=== PATIENT | female | born 1950 | race Caucasian/White ===

== ENCOUNTER → 2017-04-06 | Outpatient (CLI) | payer OTHER | LOC: FIMAGING 11:51 | PROVIDERS: ATTEND Obstetrics & Gynecology Gynecology | CPT/HCPCS: G0202 ==

== ENCOUNTER 2017-04-26 06:07 | Observation (INO) | payer OTHER ==
[~2017-04-26 06:07] MED LIST: ROPIVACAINE 0.2% 80 MG, EPINEPHrine 0.2 MG, KETOROLAC TROMETHAMINE 30 MG in BAG 0 ML IU ONE; TRANEXAMIC ACID 3,000 MG in NS 50 ML IRR ONE
[2017-04-26] MEDS ORDERED: LIDOCAINE 1% 2 ML INJ ONE ×2 (06:26→06:53)
[2017-04-26] MEDS ORDERED: LR 1,000 ML IV ONE (06:46)
[2017-04-26] MEDS ORDERED: DEXAMETHASONE 4 MG/ML VIAL ONE ×3 (06:53→07:43)
[2017-04-26] MEDS ORDERED: FAMOTIDINE 20 MG TAB ONE (06:53)
[2017-04-26] MEDS ORDERED: ACETAMINOPHEN 325 MG TAB ONE (06:53)
[2017-04-26] MEDS ORDERED: CEFAZOLIN 2 GM/DEXTROSE/100 ML BAG IV ONE (06:54)
[2017-04-26] MEDS ORDERED: TRANEXAMIC ACID 3,000 MG/50 ML BAG IRR ONE (06:59)
[2017-04-26] MEDS ORDERED: VANCOMYCIN 1 GM VIAL ONE (07:00)
--- NOTE | 2017-04-26 07:40 | PDHPUP ---
History & Physical Update H&P update statement: This history and physical update is based on an assessment of the patient which was completed after admission or registration (within 24 hours), but prior to the surgery/procedure. No change in the patient's health since H and P H&P update: H&P reviewed & patient examined, no change in patient's condition since H&P completed H&P changes: None
[2017-04-26] MEDS ORDERED: PROPOFOL/EMULSION 500 MG/50 ML BOTTLE IV ONE (07:42)
[2017-04-26] MEDS ORDERED: MIDAZOLAM 2 MG/2 ML VIAL ONE (07:42)
[2017-04-26] MEDS ORDERED: METOCLOPRAMIDE 10 MG/2 ML VIAL ONE (07:43)
[2017-04-26] MEDS ORDERED: LIDOCAINE 2% 100 MG/5 ML SYR ONE (07:43)
[2017-04-26] MEDS ORDERED: BUPIVACAINE/DEXTROSE 7.5MG/ML 2 ML SPINAL AMP SP ONE (07:43)
[2017-04-26] MEDS ORDERED: ACETAMINOPHEN 325 MG TAB PO ONE (08:00)
[2017-04-26] MEDS ORDERED: DEXAMETHASONE 4 MG/ML VIAL IVP ONE (08:00)
[2017-04-26] MEDS ORDERED: FAMOTIDINE 20 MG TAB PO ONE (08:00)
[2017-04-26] MEDS ORDERED: LIDOCAINE 1% 2 ML INJ ID PRN (08:00)
[2017-04-26] MEDS ORDERED: ceFAZolin 2 GM/DEXTROSE 100 ML IV ONE (08:00)
--- NOTE | 2017-04-26 08:08 | PDANEPAE ---
ANE History of Present Illness djd ANE Past Medical History - Cardiovascular History Hx Hypertension: No Hx Arrhythmias: No Hx Chest Pain: No Hx Coronary Artery / Peripheral Vascular Disease: No Hx CHF / Valvular Disease: No Hx Palpitations: No - Pulmonary History Hx COPD: No Hx Asthma/Reactive Airway Disease: No Hx Recent Upper Respiratory Infection: No Hx Oxygen in Use at Home: No Hx Sleep Apnea: No Sleep Apnea Screening Result - Last Documented: Negative - Neurologic History Hx Cerebrovascular Accident: No Hx Seizures: No Hx Dementia: No - Endocrine History Hx Diabetes: No Endocrine History Comment: PAST HYPOTHYROID - Renal History Hx Renal Disorders: No - Liver History Hx Hepatic Disorders: No - Neurological & Psychiatric Hx Hx Neurological and Psychiatric Disorders: No - Cancer History Hx Cancer: No - Congenital Disorder History Hx Congenital Disorders: No - GI History Hx Gastrointestinal Disorders: No - Other Health History Other Health History: PSORIASIS. BRUISES EASILY - Chronic Pain History Chronic Pain: No - Surgical History Prior Surgeries: LAMINECTOMY LUMBAR. L TKA. HYSTERECTOMY. R KNEE MENISCUS. LIPOSUCTIONS. TUMMY TUCK SIDRA Review of Systems - Exercise capacity METS (RN): 5 METS - Systems Neurological: Reports: tingling (r foot) ANE Patient History - Allergies Allergies/Adverse Reactions: Penicillins Allergy (Intermediate, Verified 09/14/12 22:27) - Home Medications Home Medications: Estradiol [Estradiol 1 MG (*)] 1 mg PO DAILY 10/14/09 [Last Taken 1 Week Ago] Fluticasone Nasal [Flonase Nasal [place] (RX)] 2 sprays NASAL DAILY 03/02/17 [ Last Taken 04/25/17] Herbals/Supplements -Info Only 1 ea PO DAILY 03/02/17 [Last Taken 1 Week Ago] Loratadine [Claritin] 10 mg PO DAILY PRN 03/02/17 [Last Taken 3 Days Ago] Multivitamins [Multivitamin (*)] 1 each PO DAILY 03/02/17 [Last Taken 1 Week Ago ] Mupirocin Calcium [Mupirocin] 1 jung TP DAILY 03/02/17 [Last Taken 04/25/17] - NPO status NPO Since - Liquids (Date): 04/25/17 NPO Since - Liquids (Time): 22:00 NPO Since - Solids (Date): 04/25/17 NPO Since - Solids (Time): 20:00 - Smoking Hx Smoking Status: Former smoker - Family Anes Hx Family Hx Anesthesia Complications: NEG ANE Labs/Vital Signs - Vital Signs Blood Pressure: 126/64 Heart Rate: 78 Respiratory Rate: 18 O2 Sat (%): 96 Height: 156.21 cm Weight: 64.41 kg ANE Physical Exam - Airway Neck exam: FROM Mallampati Score: Class 1 Mouth exam: normal dental/mouth exam - Pulmonary Pulmonary: no respiratory distress - Cardiovascular Cardiovascular: regular rate and rhythym - ASA Status ASA Status: I ANE Anesthesia Plan Anesthesia Plan: spinal (possible GA 2 to previous spine surgery)
[2017-04-26] MEDS ORDERED: fentaNYL 100 MCG/2 ML INJ ONE ×2 (08:48→10:03)
[2017-04-26] MEDS ORDERED: BUPIVACAINE/EPI 0.25% 30 ML SDV ONE (09:36)
[2017-04-26] MEDS ORDERED: BUPIVACAINE/EPI 0.5% 30 ML SDV ONE (09:36)
[2017-04-26] MEDS ORDERED: DIPHENOXYLATE/ATROPINE LOMOTIL 1 TAB PO PRN (09:38)
[2017-04-26] MEDS ORDERED: TEMAZEPAM 15 MG CAP PO PRN (09:38)
[2017-04-26] MEDS ORDERED: METOCLOPRAMIDE 10 MG/2 ML VIAL IVP PRN (09:38)
[2017-04-26] MEDS ORDERED: PROMETHAZINE HCL 25 MG/ML INJ IVP PRN (09:38)
[2017-04-26] MEDS ORDERED: MAGNESIUM HYDROXIDE 30 ML UDCUP PO PRN (09:38)
[2017-04-26] MEDS ORDERED: POLYETHYLENE GLYCOL 3350 17 GM PKT PO PRN (09:38)
[2017-04-26] MEDS ORDERED: PROMETHAZINE HCL 25 MG SUPPR PR PRN (09:38)
[2017-04-26] MEDS ORDERED: ONDANSETRON DISINTEGRATING 4 MG TAB PO PRN (09:38)
[2017-04-26] MEDS ORDERED: diphenhydrAMINE 25 MG CAP PO PRN (09:38)
[2017-04-26] MEDS ORDERED: ONDANSETRON 4 MG/2 ML VIAL IVP PRN ×2 (09:38→09:46)
[2017-04-26] MEDS ORDERED: CYCLOBENZAPRINE 10 MG TAB PO PRN (09:38)
[2017-04-26] MEDS ORDERED: LACTULOSE 20 GM/30 ML UDCUP PO PRN (09:38)
[2017-04-26] MEDS ORDERED: BISACODYL 10 MG SUPP PR PRN (09:38)
--- NOTE | 2017-04-26 09:38 | POSTOPPROG ---
Post Op Note Date of Operation: 04/26/17 Surgeon: Azalia Parekh Manager Surgical: momo kirby Anesthesiologist: Luda Anesthesia: Epidural, GET(General Endotracheal), IV Sedation Pre-op Diagnosis: right knee OA Post-op Diagnosis: right knee OA Indication: failed conservative therapies Procedure: partial medial R knee arthroplasty, robot assisted Inf/Abcess present in the surg proc area at time of surgery?: No EBL: Minimal
[2017-04-26] MEDS ORDERED: NON-FORMULARY NEW DRUG (Loratadine [Claritin] 10 MG) PO PRN (09:40)
[2017-04-26] MEDS ORDERED: MEPERIDINE 25 MG/ML SYR IVP PRN (09:46)
[2017-04-26] MEDS ORDERED: ACETAMINOPHEN 500 MG TAB PO PRN (09:46)
[2017-04-26] MEDS ORDERED: NALOXONE HCL 0.4 MG/ML INJ IVP PRN (09:46)
[2017-04-26] MEDS ORDERED: fentaNYL 100 MCG/2 ML INJ IVP PRN (09:46)
[2017-04-26] MEDS ORDERED: HYDROCODONE/APAP 5/325 TAB PO PRN (09:46)
[2017-04-26] MEDS ORDERED: LR 500 ML IV PRN (09:46)
--- NOTE | 2017-04-26 09:46 | POSTANESTH ---
Post Anesthetic Evaluation Cardiovascular Status: Normal, Stable Respiratory Status: Normal, Stable Level of Consciousness/Mental Status: Can Participate in Eval Pain Control: Adequate, Prn Tx Ordered Nausea/Vomiting Control: Adequate, Prn Tx Ordered Complications Possibly Related to Anesthesia: None Noted
[2017-04-26] MEDS ORDERED: CETIRIZINE 10 MG TAB PO PRN (09:48)
[2017-04-26] MEDS ORDERED: LR 1,000 ML IV SCH (10:00)
[2017-04-26] MEDS: ACETAMINOPHEN 325 MG TAB PO SCH ×3 (11:35→23:09)
[2017-04-26] MEDS: oxyCODONE IR 5 MG TAB PO PRN ×4 (11:36→20:29)
[2017-04-26] MEDS: ceFAZolin 2 GM/DEXTROSE 100 ML IV SCH ×2 (14:30→21:14)
[2017-04-26] MEDS: ASPIRIN 325 MG TAB PO SCH (19:28)
[2017-04-26] MEDS: SENNOSIDES/DOCUSATE SODIUM TAB PO SCH (19:28)
[2017-04-26] MEDS: FAMOTIDINE 20 MG TAB PO SCH (19:28)
[2017-04-27] MEDS: ACETAMINOPHEN 325 MG TAB PO SCH ×2 (04:55→11:22)
[2017-04-27 05:19] LABS: HEMATOCRIT 36.5 % (38.0-47.0)
[2017-04-27 07:25] VITALS: BP 107/55; PULSE 72; RESP 14; TEMP 97.7; O2SAT 95
--- NOTE | 2017-04-27 07:56 | SOAPPROG ---
SOAP Progress Note Assessment/Plan: Assessment: Patient is doing well POD 1 s/p R partial medial knee arthroplasty. Pain management: pain is well controlled on oral pain meds. VTE ppx: recommend aspirin daily for 3 weeks, cont ZOFIA and SCDs Anemia: level is expected initially postop. Asymptomatic. Continue to monitor D/c planning: d/c to home today pending release from PT. She would like to have home PT. Plan: 04/27/17 07:52 Objective: Vital Signs Temp Pulse Resp BP Pulse Ox 36.5 C 72 14 107/55 L 95 04/27/17 07:22 04/27/17 07:22 04/27/17 07:22 04/27/17 07:22 04/27/17 07:22 Laboratory Results 04/27/17 04:21 04/26/17 04/27/17 04/28/17 05:59 05:59 05:59 Intake Total 2140 Output Total 920 Balance 1220 ICD10 Worksheet Patient Problems: Problems Problem Status Onset Osteoarthritis of right knee Acute - ICD10 Problem Qualifiers (1) Osteoarthritis of right knee Qualifiers: Osteoarthritis type: primary Qualified Code(s): M17.11 - Unilateral primary osteoarthritis, right knee
--- NOTE | 2017-04-27 08:03 | SOAPPROG ---
SOAP Progress Note Assessment/Plan: Assessment: Patient is doing well POD 1 s/p R partial medial knee arthroplasty. Pain management: pain is well controlled on oral pain meds. VTE ppx: recommend aspirin daily for 3 weeks, cont ZOFIA and SCDs Anemia: level is expected initially postop. Asymptomatic. Continue to monitor D/c planning: d/c to home today pending release from PT. Plan: 04/27/17 07:52 04/27/17 08:03 Objective: Vital Signs Temp Pulse Resp BP Pulse Ox 36.5 C 72 14 107/55 L 95 04/27/17 07:22 04/27/17 07:22 04/27/17 07:22 04/27/17 07:22 04/27/17 07:22 Laboratory Results 04/27/17 04:21 04/26/17 04/27/17 04/28/17 05:59 05:59 05:59 Intake Total 2140 Output Total 920 Balance 1220 ICD10 Worksheet Patient Problems: Problems Problem Status Onset Osteoarthritis of right knee Acute - ICD10 Problem Qualifiers (1) Osteoarthritis of right knee Qualifiers: Osteoarthritis type: primary Qualified Code(s): M17.11 - Unilateral primary osteoarthritis, right knee
[2017-04-27] MEDS: SENNOSIDES/DOCUSATE SODIUM TAB PO SCH (08:05)
[2017-04-27] MEDS: ASPIRIN 325 MG TAB PO SCH (08:05)
[2017-04-27] MEDS: oxyCODONE IR 5 MG TAB PO PRN ×2 (08:05→11:22)
[2017-04-27] MEDS: FAMOTIDINE 20 MG TAB PO SCH (08:05)
[2017-04-27] MEDS ORDERED: PNEUMOC 13-VAL CONJ-DIP CRM/PF 0.5 ML SYR IM ONE (09:43)
--- NOTE | 2017-04-27 18:04 | GOP ---
[f rep st] OPERATIVE REPORT DATE OF OPERATION: 04/26/2017 SURGEON: Jesús Parekh MD B OPERATOR: Darryl Miller PA-C. ANESTHESIA: Spinal. PREOPERATIVE DIAGNOSIS: Right knee osteoarthritis. POSTOPERATIVE DIAGNOSIS: Right knee osteoarthritis. PROCEDURE PERFORMED: Right medial compartment partial knee replacement with computer navigation and robotic assist. FINDINGS/PATHOLOGY: Severe medial compartment osteoarthritis. ESTIMATED BLOOD LOSS: 30 cc. INDICATIONS: This is a 66-year-old female with severe and progressive pain and deformity of the right knee unresponsive to conservative care. The risks and benefits of surgical intervention were explained in detail. DESCRIPTION OF PROCEDURE: The patient was brought to the operating room and placed on the table in supine position. Spinal anesthesia was induced without difficulty. A pneumatic tourniquet was applied about the right proximal thigh and the leg was prepped and draped in sterile fashion. Attention was turned first to the distal aspect of the right femur. At 3 cm proximal to the lateral rise of the femur, 2 percutaneous half pins were placed for fixation of the femoral array. In a similar fashion, 2 pins were placed anterolateral on the tibia for fixation of the tibial array. External land marking and registration of the hip center was performed without difficulty. After exsanguination by elevation, the tourniquet was inflated to 250 mmHg. Incision was made from the tibial tuberosity to the superior pole of the patella. Dissection was carried out through the subcutaneous tissue to the deep fascia using Bovie electrocautery for hemostasis. Medial parapatellar arthrotomy was carried out to the superior pole of the patella. The medial collateral ligament was elevated and the infrapatellar fat pad was resected. Internal femoral and tibial registration was carried out without difficulty and the femoral and tibial checkpoints were placed and verified for accuracy. Attention was turned to the femur. The foot print for the size 4 femoral component was cut with the 6 mm bur using the Local[employer] robotic system and verified for accuracy against the CT based plan. The hole was cut for the femoral post. In a similar fashion, the 6 mm bur was used to cut the foot print for the size 4 tibial component using the BURKE system and verified for accuracy against the CT based plan. Attention was turned to the posterior aspect of the knee and remnants of the medial meniscus were excised. The posterior capsule was injected with ropivacaine, epinephrine and Toradol. Trial reduction was carried out and there was excellent range of motion, alignment and stability using the size 4 femoral component and the size 4 tibial component, 4 x 8 mm polyethylene. All trials were then removed. The joint was thoroughly irrigated and carefully dried. One package of cement and 1 gram of vancomycin were mixed in the vacuum mixer and placed on the fixation surfaces of all components. The components were implanted and all excess cement was thoroughly removed. Implant placement was verified against the CT view plan and found to be excellent. The tourniquet was deflated and all bleeders were coagulated. The wound was thoroughly irrigated and closed using interrupted sutures of 2-0 Vicryl for the joint capsule. The subcu was closed with 3-0 Vicryl and the skin with 4-0 Monocryl. Dermabond and Steri-Strips were applied, followed by a compressive dressing. The patient was then moved from the operating room to the recovery room in good condition, having tolerated the procedure well. CASE CLASSIFICATION: Clean. /[id number]/MODL MTDD
--- NOTE | 2017-04-28 01:05 | GDS ---
[f rep st] DISCHARGE SUMMARY ADMISSION DIAGNOSIS: Right knee medial compartment osteoarthritis. DISCHARGE DIAGNOSIS: Right knee medial compartment osteoarthritis. OPERATION PERFORMED: A right partial knee arthroplasty of the medial compartment, robot assisted. BRIEF DESCRIPTION OF HOSPITAL STAY: Patient was admitted for an elective joint arthroplasty. The p atient tolerated the procedure well and has passed physical therapy. The patient was given appropri ate antibiotic prophylaxis and venous thromboembolism prophylaxis. The patient's pain was well cont rolled on oral pain medication, patient was holding down food, and had urinated. Decision was made to discharge the patient. The patient was given post-operative prescriptions pre-operatively. VTE PROPHYLAXIS: Aspirin. PLAN: Please follow up with Dr. Parekh as scheduled in 3 weeks. /[id number]/MODL
== END 2017-04-27 12:54 | disposition home or self-care (01) ==
LOC: F3N 06:07 → INTOOBSV 06:07 → F3N 11:05
PROVIDERS: ADMIT Orthopaedic Surgery; ATTEND Orthopaedic Surgery
PROC: 0SRC0JZ Replacement of Right Knee Joint with Synthetic Substitute, Open Approach (ICD-10-PCS; principal; 2017-04-26 08:00)
PROC: 8E0Y0CZ Robotic Assisted Procedure of Lower Extremity, Open Approach (ICD-10-PCS; principal; 2017-04-26 08:00)
PROC: 8E0YXBG Computer Assisted Procedure of Lower Extremity, With Computerized Tomography (ICD-10-PCS; principal; 2017-04-26 08:00)
DX: M17.11 Unilateral primary osteoarthritis, right knee (principal)
CPT/HCPCS: 27446; 73560; 97116; 97161; 97165; G0378; C1713; J0171; J0690; J1100; J1885; J2001; J2250; J2704; J2765; J2795; J3010; J3370

== ENCOUNTER → 2018-10-22 | Outpatient (CLI) | payer OTHER | LOC: FIMAGING 15:15 | PROVIDERS: ATTEND Family Medicine | DX: Z12.31 Encounter for screening mammogram for malignant neoplasm of breast (principal) ==